=== PATIENT | female | born 1985 ===

== ENCOUNTER 2017-12-14 20:10 | Inpatient (IN) | payer BC ==
[2017-12-14 20:51] VITALS: BMI 34.9
[2017-12-14] MEDS ORDERED: Butorphanol Tartrate 1 MG/ML VIAL SLOW IVP PRN (22:55)
[2017-12-14] MEDS ORDERED: Lidocaine 1% (PF) 30 ML VIAL SC PRN (22:55)
[2017-12-14] MEDS ORDERED: Promethazine HCl 25 MG/ML VIAL IM PRN (22:55)
[2017-12-14] MEDS ORDERED: HYDROcodone/Acetaminophen 5/325 mg Tablet PO PRN ×2 (22:55)
[2017-12-14] MEDS ORDERED: NS / Oxytocin 40 units/1000ml 1,000 ML IV PRN (22:55)
--- NOTE | 2017-12-14 22:58 | PDOC.EVN ---
Event Note - Event Note Event Note: Admit orders placed by me as requested by Dr Mancuso. Primary management per Dr Mancuso, Desires "low intervention".
[2017-12-14 23:47] LABS: Hemoglobin 10.5 g/dL (12.0-16.0); Mean Corpuscular HGB CONC 34.1 g/dL (32.0-36.0); Mean Corpuscular Hemoglobin 26.6 pg (27.0-31.0); Mean Corpuscular Volume 77.9 fL (78.0-98.0); Mean Platelet Volume 8.3 fL (7.4-10.4); Platelet Count 240 thou/uL (130-400); RBC Distribution Width 13.3 % (11.5-14.5); Red Blood Cell (RBC) Count 3.96 mill/uL (4.20-5.40); White Blood Cell (WBC) Count 10.5 thou/uL (4.8-10.8)
[2017-12-15 01:31] LABS: HBSAg Index 0.15 S/CO (0-0.99); Hep B Surf Ag Non-Reactive S/CO (NonReactive)
[2017-12-15 05:50] LABS: Syphilis Antibody Nonreactive (Nonreactive); Syphilis Antibody Index 0.05 S/CO (<1.00 Non-Reactive)
[2017-12-15] MEDS ORDERED: Zolpidem Tartrate 5 MG TAB PO PRN (14:35)
[2017-12-15] MEDS ORDERED: diphenhydrAMINE 25 MG CAP PO PRN (14:35)
[2017-12-15] MEDS ORDERED: Milk Of Magnesia 30 ML UDCUP PO PRN (14:35)
[2017-12-15] MEDS ORDERED: Acetaminophen/Codeine 30-300mg Tablet PO PRN (14:35)
[2017-12-15] MEDS ORDERED: Benzocaine/Menthol 20-0.5% 60 ML CAN TOP PRN (14:35)
[2017-12-15] MEDS ORDERED: Ondansetron HCl/PF 4 MG/2 ML Vial IVP PRN (14:35)
[2017-12-15] MEDS ORDERED: Bisacodyl 10 MG SUPP PR PRN (14:35)
[2017-12-15] MEDS ORDERED: Preparation H Ointment 28 GM TUBE PR PRN (14:35)
[2017-12-15] MEDS ORDERED: Lanolin Ointment 7 GM TUBE TOP PRN (14:35)
[2017-12-15] MEDS ORDERED: NS / Oxytocin 40 units/1000ml 1,000 ML IV SCH (14:45)
[2017-12-15] MEDS: Ibuprofen 800 MG TAB PO SCH ×3 (14:57→21:26)
[2017-12-15] MEDS: Ferrous Sulfate 325 MG TAB PO SCH (17:32)
[2017-12-15] MEDS: Docusate Calcium (SURFAK) 240 MG CAP PO SCH (19:42)
[2017-12-15] MEDS: Acetaminophen/Codeine 30-300mg Tablet PO PRN (19:42)
[2017-12-15] MEDS ORDERED: Sodium Chloride 0.9% 10 ML ONE (21:03)
[2017-12-16] MEDS: Acetaminophen/Codeine 30-300mg Tablet PO PRN ×2 (01:44→16:17)
[2017-12-16 05:54] LABS: Hemoglobin 9.5 g/dL (12.0-16.0); Mean Corpuscular HGB CONC 32.6 g/dL (32.0-36.0); Mean Corpuscular Hemoglobin 26.2 pg (27.0-31.0); Mean Corpuscular Volume 80.3 fL (78.0-98.0); Mean Platelet Volume 8.4 fL (7.4-10.4); Platelet Count 202 thou/uL (130-400); RBC Distribution Width 13.3 % (11.5-14.5); Red Blood Cell (RBC) Count 3.63 mill/uL (4.20-5.40); White Blood Cell (WBC) Count 12.8 thou/uL (4.8-10.8)
[2017-12-16] MEDS: Ibuprofen 800 MG TAB PO SCH ×3 (06:00→21:18)
[2017-12-16] MEDS ORDERED: Adacel (T-DAP) 0.5 ML VIAL IM ONE (09:00)
[2017-12-16] MEDS: Prenatal Vitamin 1 TAB PO SCH (09:23)
[2017-12-16] MEDS: Ferrous Sulfate 325 MG TAB PO SCH ×2 (09:23→18:26)
[2017-12-16] MEDS: Docusate Calcium (SURFAK) 240 MG CAP PO SCH ×2 (09:23→21:18)
[2017-12-17] MEDS: Acetaminophen/Codeine 30-300mg Tablet PO PRN (02:08)
[2017-12-17] MEDS: Ibuprofen 800 MG TAB PO SCH (06:41)
[2017-12-17] MEDS: Prenatal Vitamin 1 TAB PO SCH (08:27)
[2017-12-17] MEDS: Ferrous Sulfate 325 MG TAB PO SCH (08:27)
[2017-12-17] MEDS: Docusate Calcium (SURFAK) 240 MG CAP PO SCH (08:27)
[2017-12-17 08:44] VITALS: BP 123/62; TEMP 97.7
== END 2017-12-17 12:30 | disposition home or self-care (01) | DRG 775 ==
LOC: L&D/OP 20:10 → L&D-LIB 23:10 → 3SW 12-15 16:47
PROVIDERS: ADMIT Obstetrics & Gynecology; ATTEND Obstetrics & Gynecology
PROC: 10E0XZZ Delivery of Products of Conception, External Approach (ICD-10-PCS; principal; 2017-12-15)
PROC: 0KQM0ZZ Repair Perineum Muscle, Open Approach (ICD-10-PCS; 2017-12-15)
PROC: 10907ZC Drainage of Amniotic Fluid, Therapeutic from Products of Conception, Via Natural or Artificial Opening (ICD-10-PCS; 2017-12-15)
PROC: 3E0334Z Introduction of Serum, Toxoid and Vaccine into Peripheral Vein, Percutaneous Approach (ICD-10-PCS; 2017-12-15)
DX: O70.1 Second degree perineal laceration during delivery (principal); Z37.0 Single live birth; O99.02 Anemia complicating childbirth; D64.9 Anemia, unspecified; O26.893 Other specified pregnancy related conditions, third trimester; O76 Abnormality in fetal heart rate and rhythm complicating labor and delivery; O69.81X0 Labor and delivery complicated by cord around neck, without compression, not applicable or unspecified; Z3A.39 39 weeks gestation of pregnancy; Z79.899 Other long term (current) drug therapy; Z88.6 Allergy status to analgesic agent; Z82.79 Family history of other congenital malformations, deformations and chromosomal abnormalities
CPT/HCPCS: 36415; 85027; 85461; 86780; 86850; 86900; 86901; 87340; 90384; 96372; 99285; A4216; J2001